=== PATIENT | male | born 1940 | race Caucasian/White ===

== ENCOUNTER 2020-05-08 08:32 | Outpatient (CLI) | payer MEDICARE, BC, SELFPAY | END 2020-05-08 08:33 | disposition home or self-care (01) | LOC: ANHCOVIDVC 08:33 | PROVIDERS: PCP Family Medicine | DX: Z23 Encounter for immunization (principal) | CPT/HCPCS: 0001A; 91300 ==

== ENCOUNTER 2020-05-29 08:30 | Outpatient (CLI) | payer MEDICARE, BC, SELFPAY | END 2020-05-29 08:31 | disposition home or self-care (01) | LOC: ANHCOVIDVC 08:30 | PROVIDERS: PCP Family Medicine | DX: Z23 Encounter for immunization (principal) | CPT/HCPCS: 0002A; 91300 ==

== ENCOUNTER 2022-01-02 01:14 | Day surgery (SDC) | payer MEDICARE, BC, SELFPAY ==
--- NOTE | 2021-12-31 09:43 | PC.NURSE ---
Report to the Outpatient Waiting Room, entrance under the green pavilion located off [facility], at time _0830 on date _01/02/22 . Planned Procedure Time: . Time changes happen often and if your time is changed the preop area will call you the afternoon before. - You and your visitor will be asked to self-screen and do not enter if you have any COVID symptoms. - We encourage only one visitor and NO visitors under age 16 are allowed at this time. Your visitor will receive communication by the phone number that is given day of service. - The patient visitor is requested to social distance or may leave the building when not with patient due to restrictions. - A mask is required within the hospital. LIGHT BREAKFAST MORNING OF SURGERY Patients may have clear liquids (water, carbonated beverages, clear teas, apple juice) until 3 hours prior to surgery with a maximum of 20 ounces. - No food from midnight until time of surgery - Infants may have breast milk until 4 hours before surgery, formula 6 hours prior to surgery. - Children will be allowed to drink immediately following surgery. If applicable, please bring a bottle or sippy cup to assist with drinking. Juice, water, soda, and popsicles are readily available. For infants on formula, please bring formula the day of surgery. Pacifiers are allowed. Take the following medications with a SIP of water the morning of surgery: ____ALL ROUTINE AM MEDICATIONS Medications to discontinue per physician NONE Date to take last dose Please no make-up, nail upper sorbian, hairspray, perfume, deodorant, or body powder the day of surgery. No jewelry (including any body piercings) or valuables the day of surgery, leave them at home. Please take a shower or bath the night before, or the morning of, surgery with an antibacterial soap. Wear comfortable, loose fitting clothing. Children are encouraged to wear pajamas. - Jewelry must be removed prior to entering the operating room. Rings and piercings that are not removed may be cut off. - The hospital will not accept responsibility for valuables. - Please leave all valuables, including medications, at home the day of surgery. If you are going home after surgery, a licensed fence post driver must drive you home. - NO public transportation without another adult. - We recommend that an adult stay with you for 24 hours following discharge. - We also recommend that you do not drive, make important decision, drink alcoholic beverages, or take any drugs that were not prescribed by your health care provider for at least 24 hours after your discharge time. Follow any additional instructions given to you from your surgeon. If you or anyone in your household have experienced Covid symptoms in the past week, please notify your surgeon or the nurse liaison at the phone number below for possible testing. Telephone instructions given to __PATIENT and asked if any additional questions and then verbalized understanding. Patient advised to call surgeon office or pre surgery nurse liaison [phone] if any additional questions.
[2021-12-31 09:53] VITALS: BMI 38.5
[2022-01-02] VITALS (15 sets, daily range): BP systolic 110–151; BP diastolic 56–73; PULSE 62–76; RESP 16–18; TEMP 36.7; O2SAT 92–98
--- NOTE | 2022-01-02 07:18 | WPDHPUPDATE1 ---
History and Physical Update Update Date/Time: 01/02/22 07:18 History and Physical has been reviewed, including an updated exam of the patient. There are NO changes in the patient's condition. Risks, benefits, and alternatives have been discussed and questions answered. Patient agrees to proceed with procedure.
--- NOTE | 2022-01-02 12:01 | P.OP_ITS ---
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 A donor site on the left neck was also marked. He was taken to the operating room where he was placed supine on the operating table. A time-out was held and confirmed. The face was prepped and draped in usual f ashion. A non iodine prep was used. The tip of the nose was carefully examined and marked for the evident margins. This area was then carefully anesthetized with buffered 2% lidocaine with epinephrine. Adequate anesthesia was obtained. The incision was made as marked around the mass and the skin elevated off the perichondrium. The most superior aspect was marked with a suture for 12 o'clock. The specimen was sent to pathology. Bleeding points were electrocoagulated. The pathologist reported the diagnosis of basal cell carcinoma and that margins were free. A full-thickness graft was harvested from the left upper neck. The donor site was undermined and closed with intradermal 3-0 Vicryl and glue. The graft was defatted, but left fairly thick. It was applied to the nose where the defect had been slightly enlarged to improve symmetry. The graft was inset with 5 0 nylon. Several quilting sutures were applied as well. The graft was dressed with bacitracin ointment and a Band-Aid. The patient will be discharged home with a prescription for cephalexin 500 mg t.i.d. 15. Estimated Blood Loss 10 Drains No Packing No Pathology Yes Complications No immediate complications Condition Stable Disposition Same day
== END 2022-01-02 12:28 | disposition home or self-care (01) ==
PROVIDERS: PCP Family Medicine; Visit Provider Plastic Surgery
PROC: (CPT 11646; principal; 2022-01-02 09:30)
DX: C44.311 Basal cell carcinoma of skin of nose (principal); I10 Essential (primary) hypertension
CPT/HCPCS: 11646; 15260; 88305; 88331; A9270

== ENCOUNTER 2022-02-13 13:41 | Outpatient (CLI) | payer MEDICARE, BC, SELFPAY ==
[2022-02-13 19:16] LABS: Kit Draw Collected
== END 2022-02-13 13:42 | disposition home or self-care (01) ==
LOC: ANHGOSHLAB 13:44
PROVIDERS: PCP Family Medicine; Visit Provider Family Medicine
DX: E78.5 Hyperlipidemia, unspecified (principal); E11.65 Type 2 diabetes mellitus with hyperglycemia; M10.9 Gout, unspecified
CPT/HCPCS: 36415